=== PATIENT | female | born 1955 | race Caucasian/White ===

== ENCOUNTER → 2023-11-22 14:48 | Outpatient (REF) | payer OTHER, SELFPAY | LOC: HWRAD 14:48 | PROVIDERS: ATTENDING PHYSICIAN Family Medicine | DX: Z12.31 Encounter for screening mammogram for malignant neoplasm of breast (principal); G47.9 Sleep disorder, unspecified; E78.2 Mixed hyperlipidemia; Z13.820 Encounter for screening for osteoporosis | CPT/HCPCS: 77063; 77067; 77080 ==

== ENCOUNTER 2025-03-05 16:03 | Emergency (ER) | payer SELFPAY ==
[2025-03-05 16:10] VITALS: BP 170/92
[2025-03-05] MEDS: MOTRIN 600 MG PO (20:09)
[2025-03-05] MEDS: TYLENOL 1000 MG PO (20:09)
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
== END 2025-03-05 20:26 | disposition home or self-care (01) ==
LOC: EMR 16:03
PROVIDERS: EMERGENCY PHYSICIAN Emergency Medicine; FAMILY PHYSICIAN Family Medicine
DX: S82.001A Unspecified fracture of right patella, initial encounter for closed fracture (principal); S60.512A Abrasion of left hand, initial encounter; V47.0XXA Car driver injured in collision with fixed or stationary object in nontraffic accident, initial encounter; Y92.481 Parking lot as the place of occurrence of the external cause
CPT/HCPCS: 99283; 29505; 73564; 73590